=== PATIENT | male | born 1980 | race Caucasian/White ===

== ENCOUNTER → 2020-06-12 18:49 | Outpatient (CLI) | payer MEDICAID, SELFPAY | PROVIDERS: Visit Provider Emergency Medicine | DX: H61.891 Other specified disorders of right external ear (principal) | CPT/HCPCS: 87070; 87077; 87186; 87205 ==

== ENCOUNTER → 2020-10-09 17:44 | Outpatient (CLI) | payer MEDICAID, SELFPAY ==
[2020-10-09 18:27] LABS: Alanine Aminotransferase 26 U/L (12-78); Albumin/Globulin Ratio 1.4 (1.1-1.8); Alkaline Phosphatase 81 U/L (38-126); Anion Gap 14.5 mEq/L (5-15); Aspartate Amino Transferase 35 U/L (17-59); Bilirubin,Total 0.3 mg/dl (0.2-1.3); Blood Urea Nitrogen 18 mg/dl (9-20); Carbon Dioxide 24 mmol/L (22.0-30.0); Chloride 103 mmol/L (98-107); Chol/HDL Ratio 5.4 (1-3.5); Cholesterol 196 mg/dl (140-200); Estimated Glomerular Filt Rate 94 ml/min (>60); GFR (African American) 114 ML/MIN (>60); Globulin 2.9 g/dL (1.3-3.2); Glucose 70 mg/dl (74-100); HDL Cholesterol 36 mg/dl (40-60); Potassium 4.5 mmoL/L (3.5-5.1); Sodium 137 mmol/L (136-145); Total Protein,Serum 6.9 g/dl (6.3-8.2); Triglycerides 171 mg/dl (30-150); VLDL Cholesterol 34 mg/dL (0-40)
[2020-10-09 18:38] LABS: Direct LDL Cholesterol 136.02 mg/dL (100-129)
[2020-10-09 18:44] LABS: T4 (Thyroxine) 8.8 ug/dl (5.53-11.0)
[2020-10-09 18:58] LABS: Thyroid Stimulating Hormone 3.83 uIU/mL (0.465-4.68)
== END ==
PROVIDERS: Visit Provider Emergency Medicine
DX: M10.9 Gout, unspecified (principal)
CPT/HCPCS: 80053; 80061; 84436; 84443; 84550

== ENCOUNTER → 2020-11-13 14:00 | Outpatient (CLI) | payer OTHER, MEDICAID, SELFPAY ==
[2020-11-13 14:39] LABS: Basophils # 0.1 K/mm3 (0-0.2); Basophils % 0.7 % (0.1-2.0); Eosinophils # 0.1 K/mm3 (0.0-0.4); Eosinophils % 1.1 % (0.1-12.0); Hematocrit 48.4 % (42.0-52.0); Hemoglobin 15.3 g/dL (14.1-18.0); Lymphocytes # 2.6 K/mm3 (0.7-4.5); Lymphocytes % 28.4 % (10-50); Mean Corpuscular HGB Conc 31.6 g/dL (31.8-35.4); Mean Corpuscular Hemoglobin 27.4 pg (27.0-31.2); Mean Corpuscular Volume 86.9 fl (80-94); Monocytes # 0.7 K/mm3 (0.1-1.0); Monocytes % 7.1 % (1.7-9.3); Neutrophils # 5.8 K/mm3 (1.8-7.8); Neutrophils % 62.8 % (37.0-80.0); Platelet Count 220 K/mm3 (142-424); Red Blood Count 5.57 M/mm3 (4.60-6.20); Red Cell Distribution Width 13.4 % (11.5-17.5); White Blood Count 9.2 K/mm3 (4.8-10.8)
== END ==
PROVIDERS: Visit Provider Emergency Medicine
DX: M10.9 Gout, unspecified (principal)
CPT/HCPCS: 85025

== ENCOUNTER 2021-02-20 14:12 | Emergency (ER) | payer OTHER, MEDICAID, SELFPAY ==
[2021-02-20 14:13] VITALS: BP 120/83; PULSE 79; RESP 18; TEMP 36.9; O2SAT 97; BMI 41.3
--- NOTE | 2021-02-20 14:46 | HMH.EDUTC ---
[facility] [place] Disposition Clinical Impression: Inflammation of joint of finger of left hand Disposition: Home, Self-Care Condition on Discharge: Good Instructions: DI for Gout Additional Instructions: Follow up with PCP this week for additional testing Prescriptions: methylPREDNISolone [Medrol 4mg tab] 4 mg PO DIRECTED #21 tab Transmission Status: Pending to [facility] Referrals: Gilbert Swan MD [Primary Care Provider] - Time of Disposition: 15:01 Medical Decision Making - Gordon Inquiry Pt receiving controlled substance: No [facility] [place] HPI - General Stated complaint: lt index finger pain Time Seen by Provider: 02/20/21 14:46 - History of Present Illness Provider Complaint: Patient has had pain in his left index finger X 2 days. No injury. He has had several episodes of pain in various joints over the past year or so. Tested negative for gout, but improves with steroids. Onset (ago): day(s) (2) Location: left, upper extremity Relieving factors: none Exacerbating factors: none Associated symptoms: denies other symptoms Treatments prior to arrival: none - Related Data Home Medications Medication Instructions Recorded Confirmed methadone 10 mg/5 mL oral solution 21 mg PO DAILY ml 01/08/21 02/12/21 Phentermine HCl 37.5 mg PO DAILY 02/20/21 02/20/21 Previous Rx's Medication Instructions Recorded methylPREDNISolone [Medrol 4mg 4 mg PO DIRECTED #21 tab 02/20/21 tab] Allergies Allergy/AdvReac Type Severity Reaction Status Date / Time No Known Allergies Allergy Verified 02/12/21 09:[address] [facility] History - Hepatitis A Screen Attestation statement:: This patient has been screened for Hepatitis A risk factors. I have reviewed the patient's past medical history: Yes Medical History: Denies:: Cancer, Diabetes Mellitus Type 1, Diabetes Mellitus Type 2, MRSA Laterality Cases: Right: Other Amputation: No Fractures: No - Social History Smoking Status: Current every day smoker Tobacco Type: cigarettes, e-cigarettes # Packs/Day (cigarettes): 1 Alcohol Intake: never Substance Use Type: denies use Occupational Status: other Housing: house Family Hx:: No significant family history ROS Obtained: Yes All systems reviewed & no additional complaints - Musculoskeletal Musculoskeletal: Reports joint pain Physical Exam - General General appearance: alert, in no apparent distress - Head Head exam: normocephalic - Eye Eye exam: Present: PERRL - Respiratory Respiratory exam: Present: normal lung sounds bilaterally - Cardiovascular Cardiovascular exam: Present: regular rate, normal rhythm - Expanded Upper Extremity Exam Left Hand exam: Present: tenderness, swelling. Absent: full ROM - Neurological Exam Neurological exam: Present: alert, oriented X3 - Psychiatric Psychiatric exam: Present: normal affect, normal mood - Skin Skin exam: Present: warm, dry, intact
[2021-02-20 15:05] VITALS: BP 120/83; PULSE 79; RESP 18; TEMP 36.9; O2SAT 97
== END 2021-02-20 15:10 | disposition home or self-care (01) ==
PROVIDERS: Emergency Provider Physician Assistant; PCP Emergency Medicine
DX: M19.042 Primary osteoarthritis, left hand (principal)
CPT/HCPCS: 99202; G0463

== ENCOUNTER → 2021-02-26 17:56 | Outpatient (CLI) | payer OTHER, MEDICAID, SELFPAY ==
[2021-02-26 18:21] LABS: Basophils # 0.1 K/mm3 (0-0.2); Basophils % 0.4 % (0.1-2.0); Eosinophils # 0.2 K/mm3 (0.0-0.4); Hematocrit 47.4 % (42.0-52.0); Lymphocytes # 3.1 K/mm3 (0.7-4.5); Lymphocytes % 20.5 % (10-50); Mean Corpuscular HGB Conc 33.7 g/dL (31.8-35.4); Mean Corpuscular Hemoglobin 27.7 pg (27.0-31.2); Mean Corpuscular Volume 82.3 fl (80-94); Mean Platelet Volume 10.4 fl (7.4-10.4); Monocytes # 0.9 K/mm3 (0.1-1.0); Monocytes % 5.6 % (1.7-9.3); Neutrophils % 72.4 % (37.0-80.0); Platelet Count 252 K/mm3 (142-424); Red Blood Count 5.76 M/mm3 (4.60-6.20); White Blood Count 15.2 K/mm3 (4.8-10.8)
[2021-02-26 18:24] LABS: MANUAL DIFFERENTIAL MANUAL DIFFERENTIAL (MANUAL DIFF)
[2021-02-26 18:43] LABS: Alanine Aminotransferase 29 U/L (12-78); Albumin Level 4.2 g/dl (3.5-5.0); Albumin/Globulin Ratio 1.6 (1.1-1.8); Alkaline Phosphatase 77 U/L (38-126); Anion Gap 17.2 mEq/L (5-15); Aspartate Amino Transferase 33 U/L (17-59); Bilirubin,Total 0.5 mg/dl (0.2-1.3); Blood Urea Nitrogen 21 mg/dl (9-20); Carbon Dioxide 22 mmol/L (22.0-30.0); Chloride 103 mmol/L (98-107); Estimated Glomerular Filt Rate 67 ml/min (>60); GFR (African American) 82 ML/MIN (>60); Globulin 2.6 g/dL (1.3-3.2); Glucose 95 mg/dl (74-100); Potassium 4.2 mmoL/L (3.5-5.1); Sodium 138 mmol/L (136-145); Total Protein,Serum 6.8 g/dl (6.3-8.2); Uric Acid 9.9 mg/dl (3.5-8.5)
[2021-02-26 18:47] LABS: Erythrocyte Sedimentation Rate 7 mm/hr (0-15)
[2021-02-26 18:49] LABS: C-Reactive Protein 29.8 mg/L (0-4)
[2021-02-26 19:08] LABS: Lymphocytes % 25 % (10-50); Monocytes % 5 % (2-9); Neutrophils % 66 % (42-76); Total Cells Counted 100
[2021-02-26 19:09] LABS: Platelet Estimate Normal; RBC Morphology Normal
[2021-02-28 07:08] LABS: RA Latex Turbid. <10.0 IU/mL (0.0-13.9)
[2021-02-28 10:35] LABS: Hep A Ab, IgM Negative (Negative); Hepatitis B Core Antibody IgM Negative (Negative); Hepatitis B Surface Antigen Negative (Negative); Hepatitis C Antibody <0.1 s/co ratio (0.0-0.9)
[2021-03-01 16:13] LABS: Anti-Centromere B Antibodies <0.2 AI (0.0-0.9); Anti-DNA (DS) Ab Qn <1 IU/mL (0-9); Anti-Jo-1 <0.2 AI (0.0-0.9); Anti-Smith Antibody <0.2 AI (0.0-0.9); Antichromatin Antibodies <0.2 AI (0.0-0.9); Antiscleroderma-70 Antibodies <0.2 AI (0.0-0.9); RNP Antibodies <0.2 AI (0.0-0.9); Sjogren's Anti-SS-A <0.2 AI (0.0-0.9); Sjogren's Anti-SS-B <0.2 AI (0.0-0.9)
[2021-03-02 01:07] LABS: Anti-Cyclic Citrullinated Pept 11 units (0-19)
== END ==
PROVIDERS: Visit Provider Physician Assistant
DX: M25.40 Effusion, unspecified joint (principal)
CPT/HCPCS: 80053; 80074; 84550; 85007; 85025; 85651; 86140; 86200; 86225; 86235; 86431

== ENCOUNTER 2021-12-06 15:46 | Emergency (ER) | payer MEDICAID, SELFPAY ==
[2021-12-06 15:47] VITALS: BP 144/86; PULSE 89; RESP 18; TEMP 37.2; O2SAT 95; BMI 39.1
[2021-12-06 16:11] LABS: Apearance,Urine Clear (Clear); Blood, Urine Negative (Negative); Color,Urine Yellow (Yellow); Glucose,Urine (UA) Negative (Negative); Ketones,Urine Negative (Negative); PH,Urine 5.5 (5.0-8.5); Protein,Urine 3+ (Negative); Specific Gravity, Urine 1.025 (1.005-1.030)
[2021-12-06 16:12] LABS: Bilirubin,Urine Negative (Negative); UTC Leukocyte Esterase,Urine Negative (Negative); UTC Nitrate,Urine Negative (Negative); Urobilinogen,Urine 0.2 EU/dl (0.2)
--- NOTE | 2021-12-06 16:59 | HMH.EDUTC ---
[facility] [place] Clinical Impression: Low back pain Qualifiers: Chronicity: acute Back pain laterality: bilateral Sciatica presence: without sciatica Qualified Code(s): M54.50 - Low back pain, unspecified Low back strain Qualifiers: Encounter type: initial encounter Qualified Code(s): S39.012A - Strain of muscle, fascia and tendon of lower back, initial encounter Disposition: Home, Self-Care Condition on Discharge: Good Instructions: DI for Low Back Pain Additional Instructions: Go home and rest. It would be best if you rested tomorrow too. No heavy lifting. No twisting. Take the oral medications as directed. The muscle relaxer (cyclobenzaprine--Flexeril) will make you drowsy, so don't drive or operate heavy machinery after taking it. Don't start the oral steroids (medrol dose pack) until tomorrow, since you had the shots in here today. Follow up with your regular doctor. GO TO THE ER FOR ANY WORSENING SYMPTOMS OR CONCERN, ESPECIALLY BOWEL OR BLADDER ISSUES, SADDLE AREA NUMBNESS, FEVER, ETC Prescriptions: Ondansetron [Zofran 4mg ODT] 4 mg PO Q8HP PRN #20 tab PRN Reason: Nausea Transmission Status: Received by [facility] methylPREDNISolone [Medrol] 4 mg PO DIRECTED 6 Days #21 packet Transmission Status: Received by [facility] Referrals: García Freedman MD [Primary Care Provider] - Forms: Work/School Release Time of Disposition: 17:10 Medical Decision Making - Medical Records Medical records reviewed: No: I reviewed the patient's medical records. - Gordon Inquiry Pt receiving controlled substance: No Vital Signs: 12/06/21 15:47 12/06/21 17:21 Temperature 99.0 F 99.0 F Temperature Source Oral Oral Pulse Rate 89 Pulse Rate [Right Radial] 89 Respiratory Rate 18 18 Blood Pressure 144/86 H Blood Pressure [Right Arm] 144/86 H Blood Pressure Mean [Right Arm] 105 Blood Pressure Source Automatic Cuff Blood Pressure Source [Right Arm] Automatic Cuff Blood Pressure Position Supine Blood Pressure Position [Right Arm] Sitting 02 Sat by Pulse Oximetry 95 Oxygen Delivery Method Room Air Room Air - Lab Data Lab Results 12/06/21 16:10: Urine Color Yellow, Urine Appearance Clear, Urine pH 5.5, Ur Specific Hustler 1.025, Urine Protein 3+, Urine Glucose (UA) Negative, Urine Ketones Negative, Urine Blood Negative, Urine Nitrate Negative, Urine Bilirubin Negative, Urine Urobilinogen 0.2, Ur Leukocyte Esterase Negative Orders (Tests/Meds): ED MEDICATIONS Discontinued Medications Generic Name Dose Route Start Last Admin Trade Name Myrna PRN Reason Stop Dose Admin Ketorolac Tromethamine 60 mg 12/06/21 17:01 12/06/21 17:03 Ketorolac 60mg/2ml Vial IM 12/06/21 17:02 60 mg ONCE ONE Administration Methylprednisolone Sodium Succinate 125 mg 12/06/21 17:01 12/06/21 17:03 Methylprednisolone Sod Succ 125mg Vial IM 12/06/21 17:02 125 mg ONCE ONE Administration [facility] [place] HPI - General Stated complaint: muscle spasms in back Time Seen by Provider: 12/06/21 16:59 Mode of Arrival: Ambulatory Source of Information: Patient Limitations: No Limitations Description of Symptoms (Recalled from Triage Doc. by RN): Pt stated that he is having muscle spasms in the right middle side of his back. HEENT Symptoms (Recalled from RN notes): No Resp Symptoms (Recalled from RN notes): No Skin Symptoms (Recalled from RN notes): No MS Symptoms (Recalled from RN notes): Yes (muscle spasms) Functional Status (Recalled from RN notes): n/a - History of Present Illness Provider Complaint: He states that for the past 2 days he has had low back pain that is worse on the right. It does not radiate down his leg. He has had similar episodes in the past that he had to toradol and steroids to help get it better. That is what he came here for today. - Related Data Previous Rx's Medication Instructions Recorded phentermine 37.5 mg tablet 37.5 mg PO DAILY #30 tab 09/04
[2021-12-06 17:21] VITALS: BP 144/86; PULSE 89; RESP 18; TEMP 37.2; O2SAT 95
== END 2021-12-06 17:21 | disposition home or self-care (01) ==
PROVIDERS: Emergency Provider Nurse Practitioner Family; PCP Family Medicine
DX: S39.012A Strain of muscle, fascia and tendon of lower back, initial encounter (principal); F17.210 Nicotine dependence, cigarettes, uncomplicated
CPT/HCPCS: 81003; 96372; 99213; G0463

== ENCOUNTER 2022-07-02 15:27 | Emergency (ER) | payer SELFPAY ==
[2022-07-02 15:45] VITALS: BP 150/86; PULSE 88; RESP 14; TEMP 36.7; O2SAT 98; BMI 42.2
--- NOTE | 2022-07-02 16:15 | EXP.UTC ---
Discharge Plan Disposition Patient Disposition: Home, Self-Care Condition: Good Prescriptions Prescriptions: New prednisone 20 mg tablet 20 mg PO BID Qty: 10 0RF Rx Instructions: Start on 07/03/22 No Action buspirone 10 mg tablet 10 mg PO BID Referrals Follow up/Referrals: Daron Pérez APRN [Primary Care Provider] - See instructions Activity Restrictions/Add. Instructions Additional Instructions/Restrictions: Start oral steriods tomorrow Follow up with your Family Doctor if no improvement or any worsening of symptoms Straight to ER if any life threatening symptoms Clinical Impressions Clinical Impression: Gout attack Instructions Patient Instructions: Gout, DI for Gout, Prednisone Discharge ED Provider: Danyelle Garcia Chris [facility] General Stated complaint: left knee pain Mode of Arrival: Ambulatory Source of Information: Patient Limitations: No Limitations Time Seen by Provider: 07/02/22 16:16 Description of Symptoms (Recalled from Triage Doc. by RN): PATIENT C/O LEFT KNEE PAIN THAT STARTED MONDAY AFTERNOON HEENT Symptoms (Recalled from RN notes): No Resp Symptoms (Recalled from RN notes): No Skin Symptoms (Recalled from RN notes): No MS Symptoms (Recalled from RN notes): Yes Functional Status (Recalled from RN notes): WNL History of Present Illness Provider Complaint: Patient states that he has been having pain in his left knee for several days States that he has history of gout and feels like it does then so he came in to get a couple shots and some oral steriods that usually helps it Related Data Home Medications Medication Instructions Recorded Confirmed buspirone 10 mg tablet 10 mg PO BID Anxiety 07/02/22 07/02/22 Previous Rx's Medication Instructions Recorded prednisone 20 mg tablet 20 mg PO BID #10 tabs 07/02/22 Allergies Allergy/AdvReac Type Severity Reaction Status Date / Time No Known Allergies Allergy Verified 12/17/21 13:12 Worker's Comp Is this a Worker's Comp case?: No [facility] Medical History (Updated 07/02/22 @ 16:26 by Danyelle Garcia APRN) Anxiety Social History (Updated 07/02/22 @ 15:58 by Traci Marshall RN) Smoking Status: Current every day smoker tobacco type: cigarettes packs per day: 1 and e-cigarettes alcohol intake: never substance use type: denies use current occupational status: other Travel in the last 8 weeks: None housing: house ROS Obtained: Yes All systems reviewed & no additional complaints except as documented and Yes Systems reviewed as appropriate & no additional complaints except as documented Constitutional Constitutional: Reports system reviewed and no additional complaints, except as documented and Reports as per HPI Cardiovascular Cardiovascular: Reports system reviewed and no additional complaints, except as documented and Reports as per HPI Respiratory Respiratory: Reports system reviewed and no additional complaints, except as documented and Reports as per HPI Musculoskeletal Musculoskeletal: Reports system reviewed and no additional complaints, except as documented, Reports as per HPI and Reports other (Pain in left knee like he gets with gout) Physical Exam General General appearance: alert and in no apparent distress Respiratory Respiratory exam: Present normal lung sounds bilaterally and respiratory distress Cardiovascular Cardiovascular exam: Present regular rate and normal rhythm Expanded Lower Extremity Exam Left: Knee exam: Present tenderness and swelling; Absent abrasion, ecchymosis, deformity or dislocation Lower leg exam: Present normal inspection Ankle exam: Present normal inspection Foot/toe exam: Present normal inspection Neurovascular/Tendon exam: Present normal capillary refill Neurological Exam Neurological exam: Present alert and oriented X3 Medical Decision Making Gordon Inquiry Pt receiving controlled substance: No Gordon was queried for
[2022-07-02 16:28] VITALS: BP 150/86; PULSE 88; RESP 14; TEMP 36.7; O2SAT 98
== END 2022-07-02 16:45 | disposition home or self-care (01) ==
PROVIDERS: Emergency Provider Nurse Practitioner; PCP Nurse Practitioner Family
DX: M25.562 Pain in left knee (principal); M10.9 Gout, unspecified; F41.9 Anxiety disorder, unspecified; F17.290 Nicotine dependence, other tobacco product, uncomplicated; Z79.52 Long term (current) use of systemic steroids; Z79.899 Other long term (current) drug therapy
CPT/HCPCS: 96372; 99213; G0463

== ENCOUNTER 2023-03-05 14:36 | Emergency (ER) | payer SELFPAY ==
[2023-03-05 14:36] VITALS: BP 152/103; PULSE 88; RESP 18; TEMP 36.7; O2SAT 96; BMI 43.1
--- NOTE | 2023-03-05 14:45 | EXP.UTC ---
Discharge Plan Disposition Patient Disposition: Home, Self-Care Condition: Good Prescriptions Prescriptions: New prednisone [prednisone] 20 mg tablet 20 mg PO BID 4 Days Qty: 8 0RF No Action buspirone 10 mg tablet 10 mg PO BID Qty: 180 0RF allopurinol 100 mg tablet 100 mg PO DAILY Qty: 90 3RF prednisone 20 mg tablet 20 mg PO BID 5 Days Qty: 10 0RF Referrals Follow up/Referrals: Daron Pérez APRN [Primary Care Provider] - See instructions Activity Restrictions/Add. Instructions Additional Instructions/Restrictions: Rest the extremity, Elevate the extremity as tolerated while you are resting. Take the prednisone as directed. Don't start it until tomorrow since you had the injection here today. Follow up with your regular doctor. GO TO THE ER FOR ANY WORSENING SYMPTOMS Clinical Impressions Clinical Impression: Gout attack, Acute pain of right wrist Instructions Patient Instructions: DI for Gout, Methylprednisolone Injection, Ketorolac Injection Discharge ED Provider: Rubens Evans [facility] General Stated complaint: pain right hand and elbow, no accident Time Seen by Provider: 03/05/23 14:45 History of Present Illness Provider Complaint: He states that for the past 2 days he has had right wrist pain. He denies any injury. He has a history of gout. He states that this feels like his normal gout flare ups that he has occasionally. He denies any other joint pain or complaints. Related Data Previous Rx's Medication Instructions Recorded buspirone 10 mg tablet 10 mg PO BID Anxiety #180 tabs 07/15/22 allopurinol 100 mg tablet 100 mg PO DAILY #90 tabs 01/19/23 prednisone 20 mg tablet 20 mg PO BID 5 days #10 tabs 01/19/23 prednisone 20 mg tablet 20 mg PO BID 4 days #8 tabs 03/05/23 Allergies Allergy/AdvReac Type Severity Reaction Status Date / Time No Known Allergies Allergy Verified 07/15/22 13:33 [facility] Disclaimer: The information contained in this section may have been updated after the patient was seen, as this information can be updated by other users. Medical History Anxiety Social History Smoking Status: Current every day smoker tobacco type: cigarettes packs per day: 1 and e-cigarettes alcohol intake: never substance use type: denies use current occupational status: other Travel in the last 8 weeks: None housing: house ROS Obtained: Yes All systems reviewed & no additional complaints except as documented Constitutional Constitutional: Denies chills and Denies fever(s) Eyes Eyes: Denies eye discharge ENT Ears, Nose, Mouth, and Throat: Denies dizziness, Denies otalgia and Denies sore throat Cardiovascular Cardiovascular: Denies chest pain Respiratory Respiratory: Denies shortness of breath, Denies chest congestion, Denies cough, Denies stridor and Denies wheezing Gastrointestinal Gastrointestingal: Denies nausea or vomiting Musculoskeletal Musculoskeletal: Reports as per HPI Integumentary/Breasts Skin/Breast: Denies rash Neurologic Neurologic: Denies dizziness and Denies paresthesias Allergic/Immunologic Allergic/Immunologic: Denies wheezing Physical Exam General General appearance: alert and in no apparent distress Head Head exam: atraumatic, normocephalic and normal inspection Eye Eye exam: Present normal appearance, PERRL and EOMI ENT ENT exam: Present normal exam, normal oropharynx, mucous membranes moist, TM's normal bilaterally and normal external ear exam Neck Neck exam: Present normal inspection, full ROM and trachea midline; Absent meningismus or lymphadenopathy Chest Chest inspection: Present normal inspection and symmetric chest wall rise; Absent tenderness Respiratory Respiratory exam: Present normal lung sounds bilaterally; Absent respiratory distre
[2023-03-05 15:19] VITALS: BP 152/103; PULSE 88; RESP 18; TEMP 36.7; O2SAT 96
== END 2023-03-05 15:21 | disposition home or self-care (01) ==
PROVIDERS: Emergency Provider Nurse Practitioner Family; PCP Nurse Practitioner Family
DX: M10.031 Idiopathic gout, right wrist (principal); M25.531 Pain in right wrist; F17.290 Nicotine dependence, other tobacco product, uncomplicated; F41.9 Anxiety disorder, unspecified
CPT/HCPCS: 96372; 99212; 99214; G0463

== ENCOUNTER 2023-09-03 16:14 | Emergency (ER) | payer SELFPAY ==
--- NOTE | 2023-09-03 16:43 | ED_ITS ---
Discharge Plan Disposition Patient Disposition: Home, Self-Care Condition: Good Prescriptions Prescriptions: New methylprednisolone 4 mg Tablets,Dose Pack 4 mg PO DIRECTED 6 Days Qty: 21 0RF Rx Instructions: Take 1 pack as directed for 6 days No Action allopurinol 100 mg tablet 100 mg PO DAILY Qty: 90 3RF prednisone 20 mg tablet 20 mg PO BID 5 Days Qty: 10 0RF Referrals Follow up/Referrals: Daron Pérez APRN [Primary Care Provider] - See instructions Activity Restrictions/Add. Instructions Additional Instructions/Restrictions: Rest the extremity, Elevate the extremity as tolerated while you are resting. Take the medications as directed. Follow up with your regular doctor. GO TO THE ER FOR ANY WORSENING SYMPTOMS Clinical Impressions Clinical Impression: Gout attack Instructions Patient Instructions: LALA Bautista for Gout Discharge ED Provider: Rubens Evans [facility] General Stated complaint: right hand pain possible gout Time Seen by Provider: 09/03/23 16:43 History of Present Illness Provider Complaint: He states that he has had right wrist and hand pain for the past 2 days. He has a history of gout and he states that his gout usually affect his right wrist. He request a steroid shot. Related Data Previous Rx's Medication Instructions Recorded allopurinol 100 mg tablet 100 mg PO DAILY #90 tabs 07/14/23 prednisone 20 mg tablet 20 mg PO BID gout 5 days #10 tabs 23 methylprednisolone 4 mg tablets in 4 mg PO DIRECTED 6 days #21 tabs 09/03/23 a dose pack Allergies Allergy/AdvReac Type Severity Reaction Status Date / Time No Known Allergies Allergy Verified 09/03/23 16:55 [facility] Disclaimer: The information contained in this section may have been updated after the patient was seen, as this information can be updated by other users. Medical History Anxiety Social History Smoking Status: Current every day smoker tobacco type: cigarettes packs per day: 1 and e-cigarettes alcohol intake: never substance use type: denies use current occupational status: other Travel in the last 8 weeks: None housing: house ROS Obtained: Yes All systems reviewed & no additional complaints except as documented Constitutional Constitutional: Denies chills and Denies fever(s) Eyes Eyes: Denies eye discharge ENT Ears, Nose, Mouth, and Throat: Denies dizziness, Denies otalgia and Denies sore throat Cardiovascular Cardiovascular: Denies chest pain Respiratory Respiratory: Denies shortness of breath, Denies chest congestion, Denies cough, Denies stridor and Denies wheezing Gastrointestinal Gastrointestingal: Denies nausea or vomiting Musculoskeletal Musculoskeletal: Reports as per HPI Integumentary/Breasts Skin/Breast: Denies redness and Denies rash Neurologic Neurologic: Denies dizziness and Denies paresthesias Allergic/Immunologic Allergic/Immunologic: Denies wheezing Physical Exam General General appearance: alert and in no apparent distress Head Head exam: atraumatic, normocephalic and normal inspection Eye Eye exam: Present normal appearance, PERRL and EOMI ENT ENT exam: Present normal exam, normal oropharynx, mucous membranes moist, TM's normal bilaterally and normal external ear exam Neck Neck exam: Present normal inspection, full ROM and trachea midline; Absent meningismus or lymphadenopathy Chest Chest inspection: Present normal inspection and symmetric chest wall rise; Absent tenderness Respiratory Respiratory exam: Present normal lung sounds bilaterally; Absent respiratory distress Cardiovascular Cardiovascular exam: Present regular rate and normal rhythm; Absent JVD Abdominal Exam Abdominal exam: Present soft and normal bowel sounds; Absent distention, tenderness or guarding Extremities Exam Extremities exam: Present normal capillary refill; Absent calf tenderness Expanded Upper Extremity Exam Right: Forearm/Wrist exam: Present full ROM, tenderness and swelling; Absent abrasion, laceration, ecchymosis, deformity, crepitus, dislocation, erythema, tenderness over anatomical snuff box or pain with axial thumb loading Hand exam: Present normal inspection and full ROM; Absent tenderness Neuromotor exam: Normal wrist extension, thumb opposition, thumb IP flexion, thumb adduction and fingers 2-5 abduction Neurosensory exam: Normal radial nerve, ulnar nerve and median nerve Vascular exam: Normal capillary refill, radial pulse and ulnar pulse Back Exam Back exam: Present normal inspection; Absent tenderness Neurological Exam Neurological exam: Present alert and oriented X3 Psychiatric Psychiatric exam: Present normal affect and normal mood Skin Skin exam: Present warm, dry, intact and normal color Lymphatic Lymphatic Findings: no adenopathy Medical Decision Making Medical Records Medical records reviewed: No I reviewed the patient's medical records. Gordon Inquiry Pt receiving controlled substance: No
[2023-09-03 16:45] VITALS: BP 156/90; PULSE 85; RESP 18; TEMP 36.8; O2SAT 95; BMI 44.3
[2023-09-03] MEDS: METHYLPREDNISOLONE SOD SUCC 125MG VIAL 125 MG IM (17:27)
[2023-09-03] MEDS: KETOROLAC 60MG/2ML VIAL 60 MG IM (17:27)
[2023-09-03 17:49] VITALS: BP 156/90; PULSE 85; RESP 18; TEMP 36.8; O2SAT 95
== END 2023-09-03 17:49 | disposition home or self-care (01) ==
PROVIDERS: Emergency Provider Nurse Practitioner Family; PCP Nurse Practitioner Family
DX: M10.041 Idiopathic gout, right hand (principal); F17.210 Nicotine dependence, cigarettes, uncomplicated
CPT/HCPCS: 96372; 99212; 99214; G0463

== ENCOUNTER 2023-10-12 20:00 | Emergency (ER) | payer SELFPAY ==
[2023-10-12 20:07] VITALS: BP 159/99; PULSE 80; RESP 16; TEMP 36.7; O2SAT 94; BMI 43.5
--- NOTE | 2023-10-12 20:18 | CT_ITS ---
PROCEDURE INFORMATION: Exam: CTA Chest With Contrast Exam date and time: 10/12/2023 8:47 PM Age: 43 years old Clinical indication: Other: Back pain; Additional info: Left sided chest pain, tachy TECHNIQUE: Imaging protocol: Computed tomographic angiography of the chest with contrast. Exam focused on the arteries. 3D rendering (Not supervised by radiologist): MIP and/or 3D reconstructed images were created by the technologist. Radiation optimization: All CT scans at this facility use at least one of these dose optimization techniques: automated exposure control; mA and/or kV adjustment per patient size (includes targeted exams where dose is matched to clinical indication); or iterative reconstruction. Contrast material: ISOVUE 370; Contrast volume: 80 ml; Contrast route: INTRAVENOUS (IV); COMPARISON: CR CXR CHEST(2 VIEWS-NOT PORTABLE) 11/28/2016 4:58 PM FINDINGS: Pulmonary arteries: No large central pulmonary emboli were identified. Assessment of the small peripheral subsegmental branches was nondiagnostic at several levels due to gross respiratory motion. Aorta: No aortic aneurysm or dissection. No mediastinal hematoma. Thyroid: 8 mm calcification in the right thyroid lobe which does not require further assessment. Lungs: Granulomatous calcifications in the mediastinum, left hilum, and left lung. Question mild bilateral bronchial wall thickening suspicious for a mild element of bronchitis or bronchial edema, with no evidence of bronchiectasis or bronchial occlusions. No gross pulmonary infiltrates or edema pattern. Minor hypoventilatory changes and patchy subsegmental atelectasis in both lungs. Moderate motion effects as well. No pulmonary mass lesions are identified. Pleural spaces: No pleural effusion. No pneumothorax. Heart: Overall heart size is normal. The left ventricle appears fairly dilated at close to 7 cm internal diameter, which is outside of normal diastolic range, correlate clinically for dilated cardiomyopathy. Consider nonemergent cardiac echo. No coronary artery calcification. No pericardial effusion. Mediastinal space: The esophagus is largely contracted but demonstrates no gross abnormality. Lymph nodes: Mildly enlarged right axillary node measuring 15 mm short axis with central fatty replacement, and a few additional fatty replaced bilateral axillary nodes present, nonspecific. No supraclavicular adenopathy. No mediastinal or hilar adenopathy. Liver: Hepatomegaly incompletely visualized measuring at least 20 cm craniocaudal. Question mild fatty infiltration of the liver. Bones/joints: No acute osseous abnormalities are identified. Soft tissues: The soft tissues of the chest wall demonstrate no acute abnormality. IMPRESSION: 1. No large central pulmonary emboli were identified. Assessment of the small peripheral subsegmental branches was nondiagnostic at several levels due to gross respiratory motion. 2. Left ventricular dilatation, correlate clinically for dilated cardiomyopathy. No signs of overt cardiac decompensation. Consider nonemergent cardiac echo. 3. Slight bronchial wall thickening bilaterally, possibly mild bronchitis or bronchial edema. No pulmonary infiltrates. 4. Hepatomegaly and suspected mild hepatic steatosis. 5. Additional nonemergent findings detailed above.
--- NOTE | 2023-10-12 20:23 | ED_ITS ---
Discharge Plan Disposition Patient Disposition: Home, Self-Care Prescriptions Prescriptions: New ibuprofen 800 mg tablet 800 mg PO TID PRN (Reason: pain) 7 Days Qty: 20 0RF cyclobenzaprine 5 mg tablet 5 mg PO TID PRN (Reason: muscle spasm) 5 Days Qty: 15 0RF No Action allopurinol 100 mg tablet 100 mg PO DAILY Qty: 90 3RF prednisone 20 mg tablet 20 mg PO BID 5 Days Qty: 10 0RF methylprednisolone 4 mg Tablets,Dose Pack 4 mg PO DIRECTED 6 Days Qty: 21 0RF Rx Instructions: Take 1 pack as directed for 6 days Referrals Follow up/Referrals: Daron Pérez APRN [Primary Care Provider] - See instructions Activity Restrictions/Add. Instructions Additional Instructions/Restrictions: No evidence of an acute cardiopulmonary emergency no evidence of any urinary tract infection or blood in your urine etc. This is most likely consistent with a musculoskeletal strain. Anti-inflammatory medication and muscle relaxer have been prescribed your pharmacy please return with any worsening symptoms. Clinical Impressions Clinical Impression: Back pain, thoracic Discharge ED Provider: Lena Washington General Adult HPI General Chief complaint: PAIN Stated complaint: pain in left side Time Seen by Provider: 10/12/23 20:11 Mode of Arrival: Family Vehicle Source of Information: Patient Limitations: No Limitations Description of Symptoms (Recalled from ER Triage Doc. by RN): 43 YO MALE PRESENTS W/ CC OF LEFT LATERAL 'SIDE PAIN'. PATIENT STATES HE HAS EXPERIENCED THIS BEFORE AND WAS DIAGNOSED WITH A MUSCLE SPASM. History of Present Illness HPI narrative: Patient is a 43-year-old male presented today with left lateral thoracic pain. Initially states he feels like it is a muscle spasm but has had no mechanism for any type of muscle strain. 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 Is a chronic smoker has had a cough states that it is worse when he smokes. Denies any significant worsening shortness of breath states that he has a cough that is chronic. Denies any fevers or chills. Denies any urinary symptoms. Has had an ice pack on this all day states is very severe with any type of movement. Related Data Previous Rx's Medication Instructions Recorded allopurinol 100 mg tablet 100 mg PO DAILY #90 tabs 07/14/23 prednisone 20 mg tablet 20 mg PO BID gout 5 days #10 tabs 08/25/23 methylprednisolone 4 mg tablets in 4 mg PO DIRECTED 6 days #21 tabs 09/03/23 a dose pack cyclobenzaprine 5 mg tablet 5 mg PO TID PRN muscle spasm 5 10/12/23 days #15 tabs ibuprofen 800 mg tablet 800 mg PO TID PRN pain 7 days #20 10/12/23 tabs Allergies Allergy/AdvReac Type Severity Reaction Status Date / Time No Known Allergies Allergy Verified 09/03/23 16:55 [facility] Disclaimer: The information contained in this section may have been updated after the patient was seen, as this information can be updated by other users. Medical History Anxiety Social History Smoking Status: Unknown if ever smoked alcohol intake: never substance use type: denies use current occupational status: other Travel in the last 8 weeks: None housing: house ROS Obtained: Yes All systems reviewed & no additional complaints except as documented Physical Exam General General appearance: other (Actively coughing) Respiratory Respiratory exam: Present other (Left lung base crackles and significant tenderness over the same skin region in this area no rash noted) Cardiovascular Cardiovascular exam: Present regular rate and normal rhythm Neurological Exam Neurological exam: Present alert Medical Decision Making [place]ron Inquiry Pt receiving controlled substance: No Vital Signs: 10/12/23 20:07 Temperature 98.0 F Temperature Source Oral Pulse Rate [Right Brachial] 80 Respiratory Rate 16 Blood Pressure [Right Arm] 159/99 H Blood Pressure Mean [Right Arm] 119 Blood Pressure Source [Right Arm] Automatic Cuff Blood Pressure Position [Right Arm] Sitting 02 Sat by Pulse Oximetry 94 L Oxygen Delivery Method Room Air Lab Data Lab results reviewed: Yes I reviewed the patient's lab results. Lab Results 10/12/23 20:04: Urine Color Yellow, Urine Appearance Clear, Urine pH 6.0, Ur Specific [place] >= 1.030, Urine Protein Negative, Urine Glucose (UA) Negative, Urine Ketones Negative, Urine Blood Negative, Urine Nitrate Negative, Urine Bilirubin Negative, Urine Urobilinogen 0.2, Ur Leukocyte Esterase Negative, Urine RBC None, Urine WBC None, Ur Squamous Epith Cells Occasional, Urine Bacteria Trace 10/12/23 20:36: WBC 13.1 H, RBC 5.55, Hgb 15.6, Hct 46.5, MCV 83.8, MCH 28.2, MCHC 33.7, RDW 13.7, Plt Count 329, MPV 9.3, Neut % (Auto) 71.8, Lymph % (Auto) 20.3, [place] % (Auto) 6.3, Eos % (Auto) 1.1, Baso % (Auto) 0.4, Neut # (Auto) 9.4 H, Lymph # (Auto) 2.7, [place] # (Auto) 0.8, Eos # (Auto) 0.2, Baso # (Auto) 0.1, Sodium 138, Potassium 3.9, Chloride 103, Carbon Dioxide 30, Anion Gap 8.9, BUN 17, Creatinine 1.00, Estimated Creat Clear 97, Estimated GFR 82, Est GFR ( Amer) 100, Glucose 136 H, Calcium 9.5, Total Bilirubin 0.4, AST 34, ALT 29, Alkaline Phosphatase 74, Troponin I < 0.01, Total Protein 7.3, Albumin 4.1, Globulin 3.2, Albumin/Globulin Ratio 1.3 10/12/23 20:36 10/12/23 20:36 Orders (Tests/Meds): ED MEDICATIONS Generic Name Dose Route Start Last Admin Trade Name Freq PRN Reason Stop Dose Admin Sodium Chloride 10 ml 10/12/23 20:58 10/12/23 21:00 Sodium Chloride 0.9% 10ml Syr (Rad Only) IV 11/11/23 20:57 10 ml NEEDED PRN Administration Maintain IV Site Discontinued Medications Generic Name Dose Route Start Last Admin Trade Name Freq PRN Reason Stop Dose Admin Cyclobenzaprine HCl 5 mg 10/12/23 20:18 10/12/23 20:37 Cyclobenzaprine 10mg Tablet PO 10/12/23 20:19 5 mg ONCE ONE Administration Lactated Ringer's 1,000 mls @ 999 mls/hr 10/12/23 20:30 10/12/23 20:37 Lactated Ringer's 1000 Ml Bag IV 10/12/23 21:30 999 mls/hr .Q1H1M CARLOS Administration Iopamidol 75 ml 10/12/23 20:58 10/12/23 20:59 Iopamidol-370 (76%);100ml Bottle IV 10/12/23 20:59 75 ml ONCE ONE Administration Ketorolac Tromethamine 15 mg 10/12/23 20:20 10/12/23 20:36 Ketorolac 30mg/Ml Vial IV 10/12/23 20:21 15 mg ONCE ONE Administration Sodium Chloride 50 ml 10/12/23 20:58 10/12/23 20:59 0.9 % Sodium Chloride 50 Ml Vial IV 10/12/23 20:59 50 ml ONCE ONE Administration ORDERS Category Date Time Status CT angio chest PE protocol Stat Cat Scan 10/12/23 20:18 Completed CBC w/Auto Diff [Complete Blood Count Auto Diff] Stat Lab 10/12/23 20:36 Completed CMP [Comprehensive Metabolic Panel] Stat Lab 10/12/23 20:36 Completed Trop I [Troponin I] Stat Lab 10/12/23 20:36 Completed Troponin I Q3H Lab 10/12/23 23:30 Ordered Troponin I Q3H Lab 10/13/23 02:30 Ordered UA [Urinalysis and Microscopic] Stat Lab 10/12/23 20:04 Completed ECG initial Besson Routine Y 10/12/23 20:39 Completed ECG Data Tracing #1: I reviewed this ECG and interpreted as documented below: (Performed which I first interpreted shows a ventricular rate of 91 normal sinus rhythm no acute ischemic changes noted there is a normal axis no severe conduction abnormality) HEART Score History (anamnesis): Slightly suspicious ECG: Non-specific disturbance Age: <45 years Risk factors: 1-2 risk factors Troponin: </= normal limit HEART Score: 2 Medical Decision Narrative: Patient is a chronic smoker 43-year-old male presents today with left thoracic pain with any type of significant movement. Definitely has some superficial s omatic type pain associate with this it is possible this is musculoskeletal but I am more concerned about an underlying pathology that region in this area including malignancy, pneumonia, pulmonary embolism with infarction etc. The location of his pain is also near his kidneys we will get a urinalysis to make sure this is not any type of kidney related issue including kidney stone pyelonephritis etc. Toradol Flexeril IV fluids have been administered will get a CT PE with labs and reassess. Reassessment 9:35 PM patient's lab returned and are unremarkable specifically no evidence of any hematuria. CT PE was performed which I first interpreted also with the radiology read and there is no evidence of any acute cardiopulmonary emergency. Specifically no evidence of any pulmonary embolism pneumonia broken ribs malignancy etc. In retrospect this is most likely musculoskeletal in nature he is feeling much better on my reassessment. Patient was prescribed ibuprofen and Flexeril and discharged in improved and stable condition. Critical Care Critical Care Time Critical Care Time: No
[2023-10-12] MEDS: KETOROLAC 30MG/ML VIAL 15 MG IV (20:36)
[2023-10-12] MEDS: CYCLOBENZAPRINE 10MG TABLET 5 MG PO (20:37)
[2023-10-12] MEDS: LACTATED RINGERS 1000ML 1,000 ML 999 ML IV (20:37)
--- NOTE | 2023-10-12 20:39 | ECG_ITS ---
APPROVED REPORT Exam: Resting ECG HR:91 bpm ECG Measurements Heart Rate 91 AXES NH 133 P 25 QRSd 97 QRS 26 QT 345 T 52 QTc 394 Conclusion SINUS RHYTHM LOW QRS VOLTAGE IN PRECORDIAL LEADS [QRS DEFLECTION < 1.0 mV IN CHEST LEADS] MINIMAL ST DEPRESSION [0.025+ mV ST DEPRESSION] BORDERLINE ECG UNCONFIRMED REPORT Electronically signed by : Edy Douglas MD 10/14/2023 06:34:46
[2023-10-12 20:59] LABS: Microscopic, Urine URINE MICROSCOPIC (MICROSCOPIC)
[2023-10-12] MEDS: 0.9 % SODIUM CHLORIDE 50 ML VIAL IV (20:59)
[2023-10-12] MEDS: IOPAMIDOL-370 (76%);100ML BOTTLE 75 ML IV (20:59)
[2023-10-12 21:00] LABS: Basophils # 0.1 K/mm3 (0-0.2); Basophils % 0.4 % (0.1-2.0); Eosinophils # 0.2 K/mm3 (0.0-0.4); Eosinophils % 1.1 % (0.1-12.0); Hematocrit 46.5 % (42.0-52.0); Hemoglobin 15.6 g/dL (14.1-18.0); Lymphocytes # 2.7 K/mm3 (0.7-4.5); Lymphocytes % 20.3 % (10-50); Mean Corpuscular HGB Conc 33.7 g/dL (31.8-35.4); Mean Corpuscular Hemoglobin 28.2 pg (27.0-31.2); Mean Corpuscular Volume 83.8 fl (80-94); Mean Platelet Volume 9.3 fl (7.4-10.4); Monocytes # 0.8 K/mm3 (0.1-1.0); Monocytes % 6.3 % (1.7-9.3); Neutrophils # 9.4 K/mm3 (1.8-7.8); Neutrophils % 71.8 % (37.0-80.0); Platelet Count 329 K/mm3 (142-424); Red Blood Count 5.55 M/mm3 (4.60-6.20); Red Cell Distribution Width 13.7 % (11.5-17.5); White Blood Count 13.1 K/mm3 (4.8-10.8)
[2023-10-12] MEDS: SODIUM CHLORIDE 0.9% 10ML SYR (RAD ONLY) 10 ML IV (21:00)
[2023-10-12 21:02] LABS: Appearance,Urine CLEAR (Clear); Bilirubin,Urine Negative (Negative); Blood, Urine Negative (Negative); Color,Urine YELLOW (Yellow); Glucose,Urine (UA) Negative (Negative); Ketones,Urine Negative (Negative); Leukocyte Esterase,Urine Negative (Negative); Nitrate,Urine Negative (Negative); Protein,Urine Negative (Negative); Specific Gravity, Urine >= 1.030 (1.005-1.030); Urobilinogen,Urine 0.2 EU/dl (0.2)
[2023-10-12 21:12] LABS: Alanine Aminotransferase 29 U/L (12-78); Albumin Level 4.1 g/dl (3.5-5.0); Albumin/Globulin Ratio 1.3 (1.1-1.8); Alkaline Phosphatase 74 U/L (38-126); Anion Gap 8.9 mEq/L (5-15); Aspartate Amino Transferase 34 U/L (17-59); Bilirubin,Total 0.4 mg/dl (0.2-1.3); Blood Urea Nitrogen 17 mg/dl (9-20); Calcium 9.5 mg/dl (8.4-10.2); Carbon Dioxide 30 mmol/L (22.0-30.0); Chloride 103 mmol/L (98-107); Creatinine Clearance Estimated 97 mL/min (50-200); Estimated Glomerular Filt Rate 82 ml/min (>60); GFR (African American) 100 ML/MIN (>60); Globulin 3.2 g/dL (1.3-3.2); Glucose 136 mg/dl (74-100); Potassium 3.9 mmoL/L (3.5-5.1); Sodium 138 mmol/L (136-145); Total Protein,Serum 7.3 g/dl (6.3-8.2)
[2023-10-12 21:22] LABS: Bacteria,Urine Trace /lpf; Squamous Epithelial Cell,Urine Occasional #/hpf (0-5)
[2023-10-12 21:24] LABS: Troponin I < 0.01 ng/ml (0.00-0.034)
[2023-10-12 21:35] VITALS: BP 123/96; PULSE 93; RESP 18; TEMP 37.1
== END 2023-10-12 21:38 | disposition home or self-care (01) ==
PROVIDERS: Emergency Provider Student in an Organized Health Care Education/Training Program; PCP Nurse Practitioner Family
DX: M54.6 Pain in thoracic spine (principal); R05.3 Chronic cough; F17.200 Nicotine dependence, unspecified, uncomplicated
CPT/HCPCS: 71275; 80053; 81001; 84484; 85025; 93005; 96361; 96374; 99285; Q9967

== ENCOUNTER 2023-10-14 09:59 | Emergency (ER) | payer SELFPAY ==
[2023-10-14 10:30] VITALS: BP 140/77; PULSE 85; RESP 18; TEMP 36.9; O2SAT 96; BMI 44.5
--- NOTE | 2023-10-14 10:32 | EXP.UTC ---
Discharge Plan Disposition Patient Disposition: Home, Self-Care Condition: Good Prescriptions Prescriptions: New methylprednisolone 4 mg Tablets,Dose Pack 4 mg PO DIRECTED 6 Days Qty: 21 0RF Rx Instructions: Take 1 pack as directed for 6 days No Action allopurinol 100 mg tablet 100 mg PO DAILY Qty: 90 3RF ibuprofen 800 mg tablet 800 mg PO TID PRN (Reason: pain) 7 Days Qty: 20 0RF cyclobenzaprine 5 mg tablet 5 mg PO TID PRN (Reason: muscle spasm) 5 Days Qty: 15 0RF Referrals Follow up/Referrals: Daron Pérez APRN [Primary Care Provider] - See instructions Activity Restrictions/Add. Instructions Additional Instructions/Restrictions: Go home and rest. It would be best if you rested tomorrow too. No heavy lifting. No twisting. Continue the cyclobenzaprine (muscle relaxer that was prescribed by the ER) if they help. Don't start the oral steroids (medrol dose pack) until tomorrow, since you had the shots in here today. Follow up with your regular doctor. GO TO THE ER FOR ANY WORSENING SYMPTOMS OR CONCERN, ESPECIALLY BOWEL OR BLADDER ISSUES, SADDLE AREA NUMBNESS, FEVER, ETC Clinical Impressions Clinical Impression: Pleurisy Instructions Patient Instructions: LALA Alanis for Pleurisy Discharge ED Provider: Rubens Evans [facility] General Stated complaint: muscle spasms right side Time Seen by Provider: 10/14/23 10:32 History of Present Illness Provider Complaint: He states that he is now having right sided middle back pain that is worse with breathing deep and coughing. He was having the same symptoms on the left, but he was seen in the ER 2 days ago and it got better. But then yesterday his other side started hurting. Related Data Previous Rx's Medication Instructions Recorded allopurinol 100 mg tablet 100 mg PO DAILY #90 tabs 07/14/23 cyclobenzaprine 5 mg tablet 5 mg PO TID PRN muscle spasm 5 10/12/23 days #15 tabs ibuprofen 800 mg tablet 800 mg PO TID PRN pain 7 days #20 10/12/23 tabs methylprednisolone 4 mg tablets in 4 mg PO DIRECTED 6 days #21 tabs 10/14/23 a dose pack Allergies Allergy/AdvReac Type Severity Reaction Status Date / Time No Known Allergies Allergy Verified 10/14/23 10:39 [facility] Disclaimer: The information contained in this section may have been updated after the patient was seen, as this information can be updated by other users. Medical History Anxiety Social History Smoking Status: Unknown if ever smoked alcohol intake: never substance use type: denies use current occupational status: other Travel in the last 8 weeks: None housing: house ROS Obtained: Yes All systems reviewed & no additional complaints except as documented Constitutional Constitutional: Denies chills and Denies fever(s) Eyes Eyes: Denies eye discharge ENT Ears, Nose, Mouth, and Throat: Denies dizziness, Denies otalgia and Denies sore throat Cardiovascular Cardiovascular: Denies chest pain Respiratory Respiratory: Denies shortness of breath, Reports chest congestion, Reports cough, Denies stridor and Denies wheezing Gastrointestinal Gastrointestingal: Denies nausea or vomiting Musculoskeletal Musculoskeletal: Reports system reviewed and no additional complaints, except as documented and Denies arthralgias Integumentary/Breasts Skin/Breast: Denies rash Neurologic Neurologic: Denies dizziness and Denies paresthesias Allergic/Immunologic Allergic/Immunologic: Denies wheezing Physical Exam General General appearance: alert and in no apparent distress Head Head exam: atraumatic, normocephalic and normal inspection Eye Eye exam: Present normal appearance, PERRL and EOMI ENT ENT exam: Present normal exam, normal oropharynx, mucous membranes moist, TM's normal bilaterally and normal external ear exam Neck Neck exam: Present normal inspection, full ROM and trachea midline; Absent meningismus or lymphadenopathy Chest Chest inspection: Present normal inspection and symmetric chest wall rise; Absent tenderness Respiratory Respiratory exam: Present normal lung sounds bilaterally; Absent respiratory distress Cardiovascular Cardiovascular exam: Present regular rate and normal rhythm; Absent JVD Abdominal Exam Abdominal exam: Present soft and normal bowel sounds; Absent distention, tenderness or guarding Extremities Exam Extremities exam: Present normal inspection, full ROM and normal capillary refill; Absent calf tenderness Back Exam Back exam: Present normal inspection; Absent tenderness Neurological Exam Neurological exam: Present alert, oriented X3, CN II-XII intact, normal gait and reflexes normal; Absent motor sensory deficit Psychiatric Psychiatric exam: Present normal affect and normal mood Skin Skin exam: Present warm, dry, intact and normal color Lymphatic Lymphatic Findings: no adenopathy Medical Decision Making Medical Records Medical records reviewed: No I reviewed the patient's medical records. [place] Inquiry Pt receiving controlled substance: No
[2023-10-14] MEDS: DEXAMETHASONE 4MG/ML 1ML VIAL 8 MG IM (11:15)
[2023-10-14] MEDS: KETOROLAC 60MG/2ML VIAL 30 MG IM (11:15)
[2023-10-14 11:21] VITALS: BP 140/77; PULSE 85; RESP 18; TEMP 36.9; O2SAT 96
== END 2023-10-14 11:23 | disposition home or self-care (01) ==
PROVIDERS: Emergency Provider Nurse Practitioner Family; PCP Nurse Practitioner Family
DX: R09.1 Pleurisy (principal)
CPT/HCPCS: 96372; 99212; 99214; G0463

== ENCOUNTER 2024-03-24 11:50 | Emergency (ER) | payer SELFPAY ==
[2024-03-24 12:00] VITALS: BP 173/108; PULSE 96; RESP 20; TEMP 36.8; O2SAT 96; BMI 46.2
--- NOTE | 2024-03-24 12:14 | EXP.UTC ---
Discharge Plan Disposition Patient Disposition: Home, Self-Care Condition: Good Prescriptions Prescriptions: New colchicine 0.6 mg capsule 0.6 mg PO DIRECTED PRN (Reason: gout) Qty: 6 0RF Rx Instructions: Take 2 capsules (1.2mg) now then wait one hour and take 1 capsule (0.6mg), you may repeat regimen in 72 hour if still having symptoms Referrals Follow up/Referrals: Josemanuel Adair DO [Primary Care Provider] - See instructions Activity Restrictions/Add. Instructions Additional Instructions/Restrictions: Follow up with your Family Doctor if you are still having symptoms Take medication as prescribed Return if needed Straight to ER if any life threatening symptoms Make sure to follow up with your Family Doctor for blood pressure recheck Clinical Impressions Clinical Impression: Gout attack Instructions Patient Instructions: DI for Gout, Colchicine Discharge ED Provider: Danyelle Garcia [facility] General Stated complaint: right knee pain, no accident Time Seen by Provider: 03/24/24 12:15 History of Present Illness Provider Complaint: Patient states he has a hx of gout States for the last couple of days he has been having pain in his right knee which is where he has the pain when he has a gout flare up States that when this happens he comes in and gets a steriod shot and some medication to help clear it up Denies injury States that he just wanted to get treated for gout he has to work Related Data Previous Rx's Medication Instructions Recorded colchicine 0.6 mg capsule 0.6 mg PO DIRECTED PRN gout #6 03/24/24 caps Allergies Allergy/AdvReac Type Severity Reaction Status Date / Time No Known Allergies Allergy Verified 02/02/24 14:02 [facility] Disclaimer: The information contained in this section may have been updated after the patient was seen, as this information can be updated by other users. Medical History (Updated 03/24/24 @ 12:30 by Danyelle Garcia APRN) Diabetes mellitus Hypertension Anxiety Social History Smoking Status: Unknown if ever smoked alcohol intake: never substance use type: denies use current occupational status: other Travel in the last 8 weeks: None housing: house ROS Obtained: Yes All systems reviewed & no additional complaints except as documented and Yes Systems reviewed as appropriate & no additional complaints except as documented Constitutional Constitutional: Reports system reviewed and no additional complaints, except as documented and Reports as per HPI ENT Ears, Nose, Mouth, and Throat: Reports system reviewed and no additional complaints, except as documented and Reports as per HPI Cardiovascular Cardiovascular: Reports system reviewed and no additional complaints, except as documented and Reports as per HPI Respiratory Respiratory: Reports system reviewed and no additional complaints, except as documented and Reports as per HPI Gastrointestinal Gastrointestingal: Reports system reviewed and no additional complaints, except as documented and as per HPI Musculoskeletal Musculoskeletal: Reports system reviewed and no additional complaints, except as documented, Reports as per HPI and Reports other (Pain in right knee like he has with gout flare) Physical Exam General General appearance: alert and in no apparent distress ENT ENT exam: Present mucous membranes moist Respiratory Respiratory exam: Present normal lung sounds bilaterally; Absent respiratory distress or wheezes Cardiovascular Cardiovascular exam: Present regular rate, normal rhythm and normal heart sounds Expanded Lower Extremity Exam Right: Knee exam: Present tenderness (pain with movement bending, denies injury) and swelling (mild); Absent abrasion, laceration, ecchymosis, deformity, crepitus or dislocation Ankle exam: Present normal inspection Foot/toe exam: Present normal inspection Neurological Exam Neurological exam: Present alert, oriented X3 and normal gait Medical Decision Making Gordon Inquiry Pt receiving controlled substance: No Gordon was queried for this patient: No Medical Decision Narrative: Discussed with patient about uric acid and xray and he declined again states that this is like he has when he has a gout flare up States he took 3 Motrin at home just prior to arrival will given Solumedrol injection and give colchine 1.2mg now and 0.6mg one hour later and have him follow up if no improvement
[2024-03-24] MEDS: METHYLPREDNISOLONE SOD SUCC 125MG VIAL 125 MG IM (12:19)
[2024-03-24 12:35] VITALS: BP 138/92; PULSE 96; RESP 20; TEMP 36.8; O2SAT 96
== END 2024-03-24 12:38 | disposition home or self-care (01) ==
PROVIDERS: Emergency Provider Nurse Practitioner; PCP Internal Medicine
DX: M10.061 Idiopathic gout, right knee (principal); M25.561 Pain in right knee
CPT/HCPCS: 96372; 99212; 99214; G0463; J2919